=== PATIENT | female | born 1970 | race Caucasian/White ===

== ENCOUNTER → 2019-11-20 14:05 | Outpatient (CLI) | payer OTHER, SELFPAY ==
--- NOTE | ~2019-11-20 | MM_ITS ---
EXAMINATION: MM screening [facility] BI w jorge HISTORY: Screening mammogram TECHNIQUE: Craniocaudal and mediolateral oblique 3-D tomosynthesis images were obtained and synthetic 2-D images were generated. CAD analysis was submitted and interpreted. COMPARISON: 07/29/2018, 07/07/2016, 04/26/2015 BREAST PARENCHYMAL COMPOSITION: There are scattered areas of fibroglandular density. FINDINGS: There is no evidence of suspicious mass, calcification, or architectural distortion to sugg est malignancy in either breast. There has been no suspicious interval change. IMPRESSION: 1. No mammographic evidence of malignancy. 2. Recommend routine screening mammography in one year. BI-RADS Category 1: Negative Reviewed, dictated and finalized at location A.
== END ==
PROVIDERS: PCP Physician Assistant; Visit Provider Obstetrics & Gynecology
DX: Z12.31 Encounter for screening mammogram for malignant neoplasm of breast (principal)
CPT/HCPCS: 77063; 77067

== ENCOUNTER → 2020-05-09 14:53 | Outpatient (CLI) | payer OTHER, SELFPAY ==
--- NOTE | ~2020-05-09 | CT_ITS ---
EXAMINATION: CT diagnostic chest wo con EXAM DATE: 05/09/2020 15:08 INDICATION: Abnormal CT of heart. Lung nodule. TECHNIQUE: Spiral CT of the chest without contrast. Axial, coronal and sagittal images were reviewe d. Coronal maximum intensity pixel images of chest reviewed. The dose-length product (DLP) for this examination was 606.36 mGy-cm. The exposure was tailored according to patient size (auto mA exposur e control), and iterative reconstruction (ASIR) was used as additional dose reduction technique. The re is no prior study for comparison. FINDINGS: Small cluster of left lower lobe calcified and noncalcified nodules, appearance is consist ent with postinfectious granulomata requiring no further follow-up. There are no suspicious pulmonary nodules. There are no pleural or pericardial effusions. Tracheobronchial tree is patent. There is no mediastinal, hilar or axillary lymphadenopathy. There is no pneumothorax. Heart normal in s ize. No evidence of coronary arterial calcification. Upper abdomen is unremarkable. There is mil d thoracic spondylosis without osteoblastic or osteolytic lesions identified. IMPRESSION: Post infectious residua. Otherwise unremarkable exam. Reviewed, dictated and finalized at location A.
== END ==
PROVIDERS: Visit Provider Physician Assistant
DX: R93.1 Abnormal findings on diagnostic imaging of heart and coronary circulation (principal); R91.1 Solitary pulmonary nodule
CPT/HCPCS: 71250

== ENCOUNTER → 2020-11-22 15:57 | Outpatient (CLI) | payer OTHER, SELFPAY ==
--- NOTE | ~2020-11-22 | MM_ITS ---
EXAMINATION: MM screening [facility] BI w jorge HISTORY: Screening mammogram TECHNIQUE: Craniocaudal and mediolateral oblique 3-D tomosynthesis images were obtained and synthetic 2-D images were generated. CAD analysis was submitted and interpreted. COMPARISON: 11/12/2019, 07/29/2018, 07/07/2016, 04/26/2015 BREAST PARENCHYMAL COMPOSITION: There are scattered areas of fibroglandular density. FINDINGS: Stable bilateral breast masses are considered benign given the lack of interval change. The re is no evidence of suspicious mass, calcification, or architectural distortion to suggest malignanc y in either breast. There has been no suspicious interval change. IMPRESSION: 1. No mammographic evidence of malignancy. 2. Recommend routine screening mammography in one year. BI-RADS Category 2: Benign finding(s). Reviewed, dictated and finalized at location A.
== END ==
PROVIDERS: PCP Physician Assistant; Visit Provider Physician Assistant
DX: Z12.31 Encounter for screening mammogram for malignant neoplasm of breast (principal)
CPT/HCPCS: 77063; 77067

== ENCOUNTER → 2021-02-04 13:07 | Outpatient (CLI) | payer OTHER, SELFPAY ==
--- NOTE | ~2021-02-04 | US_ITS ---
EXAMINATION: US right upper quadrant EXAM DATE: 02/04/2021 13:23 INDICATION: Right upper quadrant pain . TECHNIQUE: Multiple grayscale and Doppler images of the abdomen right upper quadrant were obtained (b y a technologist who performed the scan) and subsequently reviewed. There is no prior study for [place]. FINDINGS: The pancreatic head and body are normal in appearance. The pancreatic tail is not visualized. The l iver has normal echogenicity and contour. There are no focal liver lesions identified. There is no evidence of intrahepatic biliary duct dilation. Portal venous flow was seen in the hepatopedal, nor mal direction and has normal Doppler waveform. No right-sided hydronephrosis. Common bile duct measures 3 mm, which is normal. The gallbladder wall is normal in thickness, with ex pected amount of distention. No sonographic evidence of pericholecystic fluid. There is no cholelit hiases. Technologist performing exam reports patient did not demonstrate sonographic Croft's sign. Please note that this sign is less reliable in patients who have received pain medication. IMPRESSION: 1. Unremarkable abdominal ultrasound exam. Reviewed, dictated and finalized at location B. RUNNER
== END ==
PROVIDERS: PCP Physician Assistant; Visit Provider Physician Assistant
DX: R10.11 Right upper quadrant pain (principal)
CPT/HCPCS: 76705

== ENCOUNTER 2021-02-13 08:39 | Outpatient (CLI) | payer OTHER, SELFPAY ==
--- NOTE | ~2021-02-13 | NM_ITS ---
EXAMINATION: NM hepatobiliary wo pharm DATE: 02/13/2021 12:45 INDICATION: Right upper quadrant abdominal pain. COMPARISON: Ultrasound 02/04/2021 TECHNIQUE: 5 mCi Tc-99m mebrofenin (Choletec) was administered intravenously. Scintigraphic images o f the abdomen were obtained for one hour. Then, the patient drank 8 oz Ensure, and imaging was contin ued for 60 minutes. FINDINGS: There is normal clearance of radiotracer from the blood pool. There is homogeneous tracer u ptake by the liver. Activity progresses to the bowel and gallbladder. Gallbladder ejection fraction (GBEF) was 13%. Note that with this technique, normal GBEF >= 33%. IMPRESSION: 1. Low gallbladder ejection fraction, consistent with gallbladder dysfunction and/or chronic cholecy stitis. Reviewed, dictated and finalized at location A. ING TRACTOR OPERATOR SWAMP IMPRESSION: 1. Low gallbladder ejection fraction, consistent with gallbladder dysfunction and/or chronic cholecystitis.
== END 2021-02-13 08:40 | disposition home or self-care (01) ==
PROVIDERS: PCP Physician Assistant; Visit Provider Physician Assistant
DX: R10.11 Right upper quadrant pain (principal)
CPT/HCPCS: 78226; A9537

== ENCOUNTER 2021-03-25 12:38 | Outpatient (CLI) | payer OTHER, SELFPAY ==
--- NOTE | 2021-03-25 12:15 | ECG_ITS ---
Measurements Intervals [place] Rate: 78 P: 51 [place]: 166 QRS: 48 QRSD: 78 T: 36 QT: 360 QTc: 412 Interpretive Statements SINUS RHYTHM POSSIBLE LEFT ATRIAL ENLARGEMENT LOW QRS VOLTAGE IN PRECORDIAL LEADS BASELINE ARTIFACT- I, II, III, AVR, AVL, AVF BORDERLINE ECG Electronically Signed On 03-25-2021 13:02:07 POWERHOUSE TENDER by Farooq Coats D.O.
[2021-03-25 13:52] LABS: Alanine Aminotransferase 43 U/L (4-35); Alkaline Phosphatase 71 U/L (38-126); Amylase 69 U/L (30-110); Aspartate Amino Transferase 39 U/L (14-36); Bilirubin,Total 0.4 mg/dL (0.2-1.3); Lipase 140 U/L (23-300)
== END 2021-03-25 12:39 | disposition home or self-care (01) ==
LOC: ANHSURGERY 12:40
PROVIDERS: PCP Physician Assistant; Visit Provider Surgery
DX: K81.1 Chronic cholecystitis (principal); E78.5 Hyperlipidemia, unspecified; Z01.818 Encounter for other preprocedural examination; R94.31 Abnormal electrocardiogram [ECG] [EKG]
CPT/HCPCS: 36415; 80076; 82150; 83690; 86850; 86900; 86901; 93005

== ENCOUNTER 2021-03-31 00:40 | Day surgery (SDC) | payer OTHER, SELFPAY ==
[2021-03-25 08:18] VITALS: BMI 32.8
--- NOTE | 2021-03-25 08:32 | PC.NURSE ---
Report to the Outpatient Waiting Room, entrance under the green pavilion located off [facility], at time 10:00 on date 03/31/21. OR Time: 12:00. - You will be asked a series of questions to screen for COVID 19 for your protection. - A mask is required within the hospital. - No visitors are allowed at this time. Preoperative COVID Testing Requirements: No COVID Test needed if: (proof is required; if not received patient will have Rapid Test prior to entry) - Patient has received COVID Vaccine at least 14 days prior to procedure date or - Patient has positive COVID test result within last 90 days of surgery date. COVID Test needed if above criteria is not met Patients may have clear liquids (water, carbonated beverages, clear teas, apple juice) until 3 hours prior to surgery (9:00) with a maximum of 20 ounces. - No food from midnight until time of surgery Take the following medications with a SIP of water the morning of surgery: PLAQUENIL, LEFLUNOMIDE, ESTRADIOL, PROGESTERONE, INHALER Medications to discontinue per physician: VITAMINS/SUPPLEMENTS Date to take last dose: 03/27/21 Please no make-up, nail arabic, hairspray, perfume, deodorant, or body powder the day of surgery. No jewelry (including any body piercings) or valuables the day of surgery, leave them at home. Please take a shower or bath the night before, or the morning of, surgery with an antibacterial soap. Wear comfortable, loose fitting clothing. HIBICLENS SHOWER - Jewelry must be removed prior to entering the operating room. Rings and piercings that are not removed may be cut off. - The hospital will not accept responsibility for valuables. - Please leave all valuables, including medications, at home the day of surgery. If you are going home after surgery, a licensed shuttle driver must drive you home. - NO public transportation without another adult. - We recommend that an adult stay with you for 24 hours following discharge. - We also recommend that you do not drive, make important decision, drink alcoholic beverages, or take any drugs that were not prescribed by your health care provider for at least 24 hours after your discharge time. Follow any additional instructions given to you from your surgeon. Telephone instructions given to RODOLFO PECK and asked if any additional questions and then verbalized understanding. Patient advised to call surgeon office or pre surgery nurse liaison [phone] if any additional questions.
--- NOTE | 2021-03-31 07:21 | WPDHPUPDATE1 ---
History and Physical Update Update Date/Time: 03/31/21 07:21 History and Physical has been reviewed, including an updated exam of the patient. There are NO changes in the patient's condition. Risks, benefits, and alternatives have been discussed and questions answered. Patient agrees to proceed with procedure.
[2021-03-31 07:27] VITALS: BP 135/82; PULSE 79; RESP 18; TEMP 36.1; O2SAT 99
[2021-03-31] MEDS: LACTATED RINGERS 1,000 ML 30 ML IV CONT (07:55)
[2021-03-31] MEDS: ACETAMINOPHEN 500 MG TABLET 1000 MG PO (07:57)
[2021-03-31] MEDS: KETOROLAC 15 MG/ML VIAL (*BKC) IV PUSH (07:57)
--- NOTE | 2021-03-31 08:41 | WPDANESEPPF ---
Anes - Initial Pre Proc Eval Procedure: Operation Date: 03/31/21 09:00 Proposed Procedures p Laparoscopic Cholecystectomy - Di Bay MD Date/Time: 03/31/21 08:41 Surgeon: Di Bay MD Pre Op Diagnosis: Chronic Cholecystitis Patient Data Age: 50 Gender: F Height: 1.6 m Weight: 85.2 kg Last Vital Signs Temp 36.1 C L 03/31/21 07:27 Pulse 79 03/31/21 07:27 Resp 18 03/31/21 07:27 BP 135/82 03/31/21 07:27 Pulse Ox 99 03/31/21 07:27 Allergies Allergy/AdvReac Type Severity Reaction Status Date / Time No Known Allergies Allergy Verified 03/31/21 07:33 Home Medications Medication Instructions Recorded Confirmed Type albuterol sulfate 90 mcg/actuation 1 puff INHALATION Q4H PRN 02/18/21 03/31/21 History aerosol inhaler estradiol 0.5 mg tablet 0.5 mg PO DAILY 02/18/21 03/31/21 History fluticasone propionate 50 1 spray INTRANASAL DAILY 02/18/21 03/31/21 History mcg/actuation nasal spray,suspension hydroxychloroquine 200 mg tablet 200 mg PO DAILY 02/18/21 03/31/21 History leflunomide 20 mg tablet 20 mg PO DAILY 02/18/21 03/31/21 History omeprazole 40 mg capsule,delayed 40 mg PO DAILY 02/18/21 03/31/21 History release ondansetron HCl 4 mg tablet 4 mg PO Q6H PRN 02/18/21 03/31/21 History potassium 99 mg tablet 99 mg PO DAILY 02/18/21 03/31/21 History progesterone micronized 100 mg 100 mg PO QAM 02/18/21 03/31/21 History capsule abatacept [Orencia ClickJect] 125 mg SUBCUT WEEKLY 03/25/21 03/31/21 History cholecalciferol (vitamin D3) 125 mcg PO DAILY 03/25/21 03/31/21 History [Vitamin D3] rosuvastatin 20 mg PO DAILY 03/25/21 03/31/21 History zinc 50 mg PO DAILY 03/25/21 03/31/21 History Patient hx anesthesia problems: none Family hx anesthesia problems: none Results Review: All pre-operative results and documents have been reviewed as part of the pre-operative evaluation. [facility] Past Medical History Medical History Asthma GERD (gastroesophageal reflux disease) High cholesterol History of blood clots History of blood transfusion Rheumatoid arthritis Surgical History Surgical History History of elbow surgery History of hysterectomy History of tonsillectomy Family History Family History Father Heart disease Hypertension Diabetes mellitus Mother Diabetes mellitus Social History Social History Smoking packs per day: 1 Smoking cigarettes per day: 20.0 Years smoked: 7 Smoking pack-years: 7.00 Smoking status: Former smoker Tobacco type: cigarettes Smoking end date: 02/22/91 Alcohol intake: current Drinks per week: 3 Alcohol use details: social Substance use: never Substance use type: does not use Living arrangements: with family Additional occupation/education comments: Administrative Spiritual care concerns: No Anes - Eval Final PreProcedure Day of Procedure 03/31/21 08:41 Patient weight: obese Heart: regular rate and rhythm Lungs: clear to auscultation Airway: Mallampati scale class II Neurological: alert and oriented Last oral intake: >/= 8 hours ASA classification: III Emergent: no Anesthetic plan: proceed Anesthesia type and monitoring: general ETT and standard monitoring Results Review: All pre-operative results and documents have been reviewed as part of the pre-operative evaluation. Informed Consent: The patient's anesthetic plan and its attendant risks and benefits were discussed with the patient/family/POA. Questions were solicited and answers provided to the satisfaction of the patient/family/POA.
[2021-03-31] MEDS: ceFAZolin 2 GM/D5W 50 ML 2 GM/50 ML BAG IVPB (08:58)
[2021-03-31] MEDS: BUPIVACAINE/EPINEPHRINE 0.5% 30 ML VIAL INFILTRATE (09:32)
--- NOTE | 2021-03-31 09:56 | P.OP_ITS ---
Procedure Note - Detailed Date of Procedure 03/31/21 Pre-op Diagnosis Chronic Cholecystitis Post-op Diagnosis same Procedure Performed Laparoscopic cholecystectomy Surgeon Di Bay MD Anesthesia general Indications 50 y/o F c chronic cholecystitis Findings chronic cholecystitis Description of Procedure The patient was taken to the operating room placed in the supine position. After adequate induction of general anesthesia, the patient was prepped and draped in normal sterile fashion. A time-out was then performed to verify the patient's identity as well as the procedure being performed. I then made a 5 mm incision in the infraumbilical region. Through this, a Veress needle was placed into the peritoneal cavity and CO2 gas was then insufflated. After adequate pneumoperitoneum was achieved, the Veress needle was removed and a 5 mm optiview trocar was placed through this incision under direct visualization. I then placed the laparoscope through this trocar site and under direct visualization placed a further 12 mm subxiphoid port as well as 2 additional 5 mm ports in the right upper abdomen. The gallbladder was then identified and was noted to be moderately inflamed and distended. I was able to place a grasper at the dome of the gallbladder and this was retracted anterior and cephalad up over the liver. A 2nd retractor was then placed at the infundibulum and retracted laterally, this allowed visualization of the triangle of Calot. I then was able to visualize the cystic duct in its entirety from its proximal insertion into the gallbladder, to its distal junction with the common hepatic/common bile duct junction. At this point, I carefully skeletonized the proximal cystic duct with the [place] dissector. I then clipped and transected the proximal cystic duct. Next I visualized the cystic artery. Again the artery was skeletonized, clipped, and transected. I then used the Bovie cautery to take down the peritoneal attachments of the gallbladder off the liver bed. Once the gallbladder specimen was completely detached, an endo-pouch was placed through the 12 mm port site. I then placed the gallbladder specimen into the Endo pouch and removed the endo-pouch from the 12 mm port site. The specimen will now be sent to pathology for further review. I then copiously irrigated the right upper quadrant. Hemostasis was noted in the liver bed, the clips were noted to be in good position on both the cystic duct stump and the cystic artery stump. No other pathology was noted in the right upper quadrant. I then moved the laparoscope to the subxiphoid port. No iatrogenic injury or other pathology was noted in the lower abdomen. I then closed the 12 mm trocar site under direct visualization using the Santosh cone and 0 Vicryl suture. At this point, the ab domen was desufflated and all ports removed. All port sites were then closed with 4.O Monocryl subcuticular sutures. Dermabond was placed on each incision. The patient tolerated the procedure well, was extubated in the operating room postoperative and will be transferred to the recovery room in stable condition Estimated Blood Loss 5 Drains No Packing No Pathology yes Complications No immediate complications Condition stable Disposition PACU
[2021-03-31 09:59] VITALS: BP 99/58; PULSE 80; RESP 16; TEMP 36.1; O2SAT 94
[2021-03-31] MEDS: fentaNYL CITRATE INJ (*CRX) 100 MCG/2 ML VIAL 25 MCG IV PUSH (10:13)
[2021-03-31 10:15] VITALS: BP 111/68; PULSE 56; RESP 16; O2SAT 100
[2021-03-31 10:30] VITALS: BP 120/65; PULSE 55; RESP 12; O2SAT 95
[2021-03-31 10:45] VITALS: BP 116/63; PULSE 68; RESP 12; O2SAT 95
[2021-03-31 10:55] VITALS: BP 134/67
== END 2021-03-31 12:00 | disposition home or self-care (01) ==
PROVIDERS: PCP Physician Assistant; Visit Provider Surgery
PROC: 0FT44ZZ Resection of Gallbladder, Percutaneous Endoscopic Approach (ICD-10-PCS; CPT 47562; principal; 2021-03-31 09:00)
DX: K81.1 Chronic cholecystitis (principal); E78.00 Pure hypercholesterolemia, unspecified; M06.9 Rheumatoid arthritis, unspecified; R10.11 Right upper quadrant pain; Z87.891 Personal history of nicotine dependence; Z79.84 Long term (current) use of oral hypoglycemic drugs; J45.909 Unspecified asthma, uncomplicated; K21.9 Gastro-esophageal reflux disease without esophagitis; E66.9 Obesity, unspecified; Z68.33 Body mass index [BMI] 33.0-33.9, adult
CPT/HCPCS: 47562; 36415; 80076; 82150; 83690; 86850; 86900; 86901; 88304; 93005; A9270; J0690; J1100; J1885; J2250; J2370; J2405; J2704; J2710; J3010; J7030; J7120

== ENCOUNTER 2023-06-04 07:18 | Outpatient (CLI) | payer OTHER, SELFPAY ==
--- NOTE | ~2023-06-04 | MM_ITS ---
EXAMINATION: MM screening [facility] BI w jorge HISTORY: Screening TECHNIQUE: Craniocaudal and mediolateral oblique 3-D tomosynthesis images were obtained and synthetic 2-D images were generated. CAD analysis was submitted and interpreted. COMPARISON: Comparison to multiple prior studies sequentially, with oldest reviewed study dated 02/2020. BREAST PARENCHYMAL COMPOSITION: There are scattered areas of fibroglandular density. FINDINGS: There is no evidence of suspicious mass, calcification, or architectural distortion to sugg est malignancy in either breast. There has been no suspicious interval change. IMPRESSION: 1. No mammographic evidence of malignancy. 2. Recommend routine screening mammography in one year. BI-RADS Category 1: Negative Reviewed, dictated and finalized at location A.
== END 2023-06-04 07:19 ==
LOC: MICIMG 07:19
PROVIDERS: PCP Physician Assistant; Visit Provider Obstetrics & Gynecology
DX: Z12.31 Encounter for screening mammogram for malignant neoplasm of breast (principal)
CPT/HCPCS: 77063; 77067

== ENCOUNTER 2023-06-25 07:32 | Outpatient (CLI) | payer OTHER, SELFPAY ==
--- NOTE | ~2023-06-25 | XR_ITS ---
XR shoulder RT min 2V 06/25/2023 07:44 Indication: Acute right shoulder pain Procedure: 4 views right shoulder Comparison: No prior studies for comparison. Findings: No fracture, subluxation or dislocation. There is anatomic alignment. No soft tissue abnorm ality. No foreign bodies. Impression: 1: No significant bone or joint abnormality. Reviewed, dictated and finalized at location B. Impression: 1: No significant bone or joint abnormality.
== END 2023-06-25 07:33 ==
PROVIDERS: PCP Physician Assistant; Visit Provider Physician Assistant
DX: M25.511 Pain in right shoulder (principal)
CPT/HCPCS: 73030

== ENCOUNTER 2023-07-10 10:57 | Outpatient (CLI) | payer OTHER, SELFPAY ==
--- NOTE | ~2023-07-10 | US_ITS ---
EXAMINATION: US right upper quadrant DATE: 07/10/2023 12:03 INDICATION: Elevated ferritin TECHNIQUE: Multiple grayscale and Doppler ultrasound images of the right upper quadrant were obtained . COMPARISON: 02/04/2021. FINDINGS: The pancreas is obscured by bowel gas. The liver is small with increased echogenicity and h eterogeneous echotexture. Possible early surface nodularity. Normal hepatopetal flow in the main port al vein, continuous flow, decreased overall amplitude. Absent gallbladder. The common bile duct measu res 5 mm. There was no sonographic Croft sign. IMPRESSION: Sonographic findings suggestive of cirrhosis. Echogenic liver, most commonly due to steatosis but als o can be seen with hepatitis and fibrosis. Status post cholecystectomy. Reviewed, dictated and finalized at location K. IMPRESSION: Sonographic findings suggestive of cirrhosis. Echogenic liver, most commonly du e to steatosis but also can be seen with hepatitis and fibrosis. Status post ch olecystectomy.
== END 2023-07-10 10:58 ==
PROVIDERS: PCP Internal Medicine; Visit Provider Physician Assistant
DX: R79.89 Other specified abnormal findings of blood chemistry (principal); Z90.49 Acquired absence of other specified parts of digestive tract
CPT/HCPCS: 76705

== ENCOUNTER 2023-12-15 08:15 | Outpatient (CLI) | payer OTHER, SELFPAY ==
--- NOTE | ~2023-12-15 | CT_ITS ---
Procedure: CT ankle LT wo con Ordering provider: Khadar Chau History: . Fx of navicular bone . Comparison: None. Technique: Thin slice axial CT of the No IV contrast was given. Sagittal and coronal reformatted imag es were also obtained and reviewed. Findings: BONES: Calcaneus spur is noted. Postoperative changes with 2 screws most likely for fixation of a comminuted fracture are seen in the navicular bone. Cystic Changes seen in the distal talus. Loss of volume of the navicular bone is not ed. JOINT SPACES: Narrowing of the talonavicular joint. SOFT TISSUES: Normal IMPRESSION: Postoperative changes in the navicular bone. Cystic changes in the distal talus. Reviewed, dictated and finalized at location A.
== END 2023-12-15 08:16 | disposition home or self-care (01) ==
LOC: MICIMG 08:16
PROVIDERS: PCP Physician Assistant
DX: M96.0 Pseudarthrosis after fusion or arthrodesis (principal); S92.253D Displaced fracture of navicular [scaphoid] of unspecified foot, subsequent encounter for fracture with routine healing; X58.XXXD Exposure to other specified factors, subsequent encounter
CPT/HCPCS: 73700

== ENCOUNTER 2024-06-05 07:31 | Outpatient (CLI) | payer BC, SELFPAY ==
--- NOTE | ~2024-06-05 | MM_ITS ---
EXAMINATION: MM screening [facility] BI w jorge HISTORY: Screening TECHNIQUE: Craniocaudal and mediolateral oblique 3-D tomosynthesis images were obtained and synthetic 2-D images were generated. CAD analysis was submitted and interpreted. COMPARISON: Comparison to multiple prior studies sequentially, with oldest reviewed study dated 07/07. BREAST PARENCHYMAL COMPOSITION: Not dense: There are scattered areas of fibroglandular density. FINDINGS: There is focal architectural distortion in the central aspect of the left breast on CC view , middle third, not well visualized on MLO view. The right breast is stable without evidence for mike gnancy. IMPRESSION: 1. Focal architectural distortion central aspect of the left breast on CC view, middle third. 2. Additional mammographic views and possible breast ultrasound are recommended. BI-RADS Category 0: Incomplete: Needs additional imaging evaluation. Reviewed, dictated and finalized at location [] IMPRESSION: 1. Focal architectural distortion central aspect of the left breast on CC view, middle third. 2. Additional mammographic views and possible breast ultrasound are recommended . BI-RADS Category 0: Incomplete: Needs additional imaging evaluation.
== END 2024-06-05 07:32 | disposition home or self-care (01) ==
LOC: MICIMG 07:33
PROVIDERS: PCP Obstetrics & Gynecology; Visit Provider Obstetrics & Gynecology
DX: Z12.31 Encounter for screening mammogram for malignant neoplasm of breast (principal); R92.8 Other abnormal and inconclusive findings on diagnostic imaging of breast
CPT/HCPCS: 77063; 77067

== ENCOUNTER 2024-07-04 09:37 | Outpatient (CLI) | payer BC, SELFPAY ==
--- NOTE | ~2024-07-04 | MM_ITS ---
EXAMINATION: MM diagnostic [facility] LT w jorge HISTORY: Left breast distortion TECHNIQUE: Additional 3-D tomosynthesis images of the left breast were performed and synthetic 2-D im ages were generated. CAD analysis was submitted and interpreted. COMPARISON: 06/05/2024, 06/04/2023 BREAST PARENCHYMAL COMPOSITION:Not Dense. There are scattered areas of fibroglandular density. FINDINGS: The area of distortion effaces with spot compression. No persistent distortion or mass lesi on seen. No suspicious calcifications. IMPRESSION: No mammographic evidence for malignancy. BI-RADS Category 1: Negative Reviewed, dictated and finalized at location .
== END 2024-07-04 09:38 | disposition home or self-care (01) ==
LOC: MICIMG 09:37
PROVIDERS: PCP Obstetrics & Gynecology; Visit Provider Obstetrics & Gynecology
DX: N64.89 Other specified disorders of breast (principal)
CPT/HCPCS: 77061; 77065; G0279

== ENCOUNTER 2024-07-10 16:43 | Outpatient (CLI) | payer BC, SELFPAY ==
--- NOTE | ~2024-07-10 | XR_ITS ---
HISTORY: Pseudarthrosis after fusion or arthrodesis COMPARISON: None TECHNIQUE: 4 views of the left foot were performed FINDINGS: No acute fracture or dislocation is appreciated. Fixation hardware is identified within the navicular bone. No significant degenerative disease is noted. The base of the fifth metatarsal is intact. A large calcaneal spur is noted. Ossification of the insertion of the Achilles tendon is present No significant soft tissue swelling is present. IMPRESSION: Degenerative disease, without acute fracture. Reviewed, dictated and finalized at location A.
== END 2024-07-10 16:44 | disposition home or self-care (01) ==
PROVIDERS: PCP Obstetrics & Gynecology
DX: M96.0 Pseudarthrosis after fusion or arthrodesis (principal); M19.072 Primary osteoarthritis, left ankle and foot
CPT/HCPCS: 73630

== ENCOUNTER 2025-01-29 09:23 | Outpatient (CLI) | payer BC, SELFPAY ==
--- NOTE | ~2025-01-29 | CT_ITS ---
EXAMINATION: CT foot RT wo con DATE: 01/29/2025 09:38 INDICATION: Closed displaced fracture of the navicula at the right foot TECHNIQUE: High resolution computed tomography (CT) of the right foot was performed without intravenous contrast. Additional sagittal and coronal reconstructions were performed. Automated exposure control and iterative reconstruction technique were employed. The dose-length product was 111.60 mGy-cm. COMPARISON: None FINDINGS: Linear lucency extending along a still ununited odontoid fracture of the navicula. There has been attempted talonavicular arthrodesis and internal fixation of the navicular fracture with a pair of dorsal plate and screws and 3 interfragmentary screws. The arthrodesis remains unfused with fracture of the proximal screws at the head of the talus associated with both the medial and lateral sided plate and screws. There is lucency at the navicula surrounding the proximal head of the compression screw which extends into the head and neck of the talus consistent with loosening. There are a pair of additional screws extending from lateral to medial across the larger or plantar navicular fragment with the heads of the screw positioned along the lateral margin of the still lucent irregular talonavicular articulation. Normal alignment throughout the remainder of the foot. There is additional old trauma versus screw tract at the posterior tuberosity of the calcaneus. No acute fractures identified. Mild fransisca yarticular osteoarthritis including at the subtalar, naviculocuneiform, first metatarsophalangeal and a few tarsometatarsal and interphalangeal joints. IMPRESSION: 1. Failed attempted talonavicular arthrodesis and for fracture fixation with residual lucency along the irregular joint line and ununited fracture with loosening of the largest compression screw and fractures of screws at both the medial and lateral dorsal plate-screw fixation. Reviewed, dictated and finalized at location A. FURNACE OPERATOR IMPRESSION: 1. Failed attempted talonavicular arthrodesis and for fracture fixation with re sidual lucency along the irregular joint line and ununited fracture with loosen ing of the largest compression screw and fractures of screws at both the medial and lateral dorsal plate-screw fixation.
== END 2025-01-29 09:24 | disposition home or self-care (01) ==
PROVIDERS: PCP Physician Assistant
DX: S92.251D Displaced fracture of navicular [scaphoid] of right foot, subsequent encounter for fracture with routine healing (principal); M19.071 Primary osteoarthritis, right ankle and foot; X58.XXXD Exposure to other specified factors, subsequent encounter
CPT/HCPCS: 73700